=== PATIENT | female | born 1970 | race Caucasian/White ===

== ENCOUNTER 2020-05-28 15:40 | Emergency (ER) | payer OTHER ==
[~2020-05-28] VITALS: Ht 144.8 cm; Wt 41.7 kg
== END 2020-05-28 17:04 | disposition home or self-care (01) ==
LOC: ER 15:40
DX: L03.116 Cellulitis of left lower limb (principal)

== ENCOUNTER 2020-06-03 13:36 | Emergency (ER) | payer OTHER ==
[~2020-06-03] VITALS: Ht 144.8 cm; Wt 44.5 kg
[2020-06-03] MEDS ORDERED: LEVAQUIN500 MG (14:03)
== END 2020-06-03 18:04 | disposition home or self-care (01) ==
LOC: ER 13:36
DX: L20.89 Other atopic dermatitis (principal); L03.115 Cellulitis of right lower limb; Z20.828 Contact with and (suspected) exposure to other viral communicable diseases

== ENCOUNTER 2021-09-09 14:54 | Outpatient (CLI) | payer OTHER ==
[~2021-09-09 14:54] MED LIST: LEVAQUIN500 MG
== END 2021-09-09 15:02 | disposition home or self-care (01) ==
LOC: MAMO-SONO 14:54
DX: R92.1 Mammographic calcification found on diagnostic imaging of breast (principal); Z12.31 Encounter for screening mammogram for malignant neoplasm of breast

== ENCOUNTER 2021-10-23 09:00 | Outpatient (CLI) | payer OTHER | END 2021-10-23 09:30 | disposition home or self-care (01) | LOC: PPH VACUNA 09:00 | PROVIDERS: ATTEND Emergency Medicine Pediatric Emergency Medicine | DX: Z23 Encounter for immunization (principal) ==

== ENCOUNTER → 2022-09-06 | Outpatient (CLI) | payer OTHER | END | disposition home or self-care (01) | LOC: RAD 14:35 | DX: Z03.818 Encounter for observation for suspected exposure to other biological agents ruled out (principal); J06.9 Acute upper respiratory infection, unspecified ==

== ENCOUNTER 2022-09-22 05:57 | Day surgery (SDC) | payer OTHER | END 2022-09-22 11:20 | disposition home or self-care (01) | LOC: CIR.AMB 05:57 | PROVIDERS: ATTEND Obstetrics & Gynecology | DX: D06.9 Carcinoma in situ of cervix, unspecified (principal); Z20.822 Contact with and (suspected) exposure to COVID-19 ==

== ENCOUNTER 2023-05-05 03:49 | Emergency (ER) | payer OTHER ==
[~2023-05-05] VITALS: Ht 144.8 cm; Wt 41.7 kg
[2023-05-05] MEDS ORDERED: TRETINOIN20 G2 TOP (03:56)
[2023-05-05] MEDS ORDERED: CEPHALEXIN500 M1 PO (07:27)
[2023-05-05] MEDS ORDERED: KETO10TA2 PO (07:27)
== END 2023-05-05 07:37 | disposition home or self-care (01) ==
LOC: ER 03:49
DX: L03.818 Cellulitis of other sites (principal); H92.02 Otalgia, left ear

== ENCOUNTER 2023-06-23 08:02 | Outpatient (CLI) | payer OTHER ==
[~2023-06-23 08:02] MED LIST changes: +CEPHALEXIN500 M1 PO; +KETO10TA2 PO; +TRETINOIN20 G2 TOP
== END 2023-06-23 08:17 | disposition home or self-care (01) ==
LOC: MAMO-SONO 08:02
DX: Z12.31 Encounter for screening mammogram for malignant neoplasm of breast (principal)

== ENCOUNTER 2023-07-17 07:19 | Emergency (ER) | payer OTHER ==
[~2023-07-17] VITALS: Ht 144.8 cm; Wt 41.7 kg
== END 2023-07-17 09:27 | disposition home or self-care (01) ==
LOC: ER 07:19
DX: L20.9 Atopic dermatitis, unspecified (principal)

== ENCOUNTER 2024-05-30 23:40 | Emergency (ER) | payer OTHER ==
[~2024-05-30] VITALS: Ht 144.8 cm; Wt 41.7 kg
[2024-05-31] MEDS ORDERED: CEFTRIAXONE SODIUM 1,000 MG VIAL IV STA (01:01)
[2024-05-31] MEDS ORDERED: KETOROLAC TROMETHAMINE 30 MG VIAL IV STA (01:02)
[2024-05-31] MEDS ORDERED: KETOROLAC TROMETHAMINE 30 MG VIAL ONE (01:07)
[2024-05-31] MEDS ORDERED: CEFTRIAXONE SODIUM 1,000 MG VIAL ONE (01:08)
[2024-05-31 01:29] LABS: PH,URINE 5.5 (5.0-8.0); URINE APPEARANCE Clear; URINE BILIRRUBIN Negative (NEGATIVE); URINE BLOOD Negative; URINE COLOR Yellow; URINE GLUCOSE Negative (NEGATIVE); URINE KETONE 15 (NEGATIVE); URINE LEUKOCYTE Negative; URINE NITRATE Negative; URINE PROTEIN Negative (NEGATIVE); URINE UROBILINOGEN 0.2 E.U./dl
[2024-05-31 01:29] LABS: HEMATOCRIT 38.6 % (36.0-45.00); HEMOGLOBIN 13.4 g/dL (12.0-15.00); MEAN CELL VOLUME 92.6 fL (80.00-100.00); MEAN CORPUSCULAR HGB CONC 34.6 g/dl (32.0-36.0); PLATELET COUNT 260 K/uL (150-450); RED BLOOD COUNT 4.17 M/uL (4.00-6.00); RED CELL DISTRIBUTION WIDTH 12.9 % (11.5-14.5)
[2024-05-31 01:32] LABS: URINE EPITHELIAL CELLS 55.3 uL (0.0-38.8); URINE RBC 53.7 uL (0.0-20.8); URINE WBC 10.8 uL (0.0-23.2)
[2024-05-31 01:46] LABS: URINE CAST 0.15 uL (0.0-1.40)
[2024-05-31 02:00] LABS: CALCIUM 9.7 mg/dL (8.5-10.1); CREATININE SERUM 0.65 mg/dL (0.55-1.02); GFR 95.35; POTASSIUM 3.85 mEq/L (3.5-5.1)
[2024-05-31] MEDS ORDERED: CEPHALEXIN500 MG PO (04:08)
[2024-05-31] MEDS ORDERED: KETO10TA2 PO (04:08)
== END 2024-05-31 04:36 | disposition home or self-care (01) ==
LOC: ER 23:42
PROVIDERS: General Practice
DX: R53.81 Other malaise (principal); N63.0 Unspecified lump in unspecified breast; R50.9 Fever, unspecified

== ENCOUNTER 2024-09-23 06:19 | Emergency (ER) | payer OTHER ==
[~2024-09-23] VITALS: Ht 144.8 cm; Wt 41.7 kg
[~2024-09-23 06:19] MED LIST changes: +CEPHALEXIN500 MG PO
[2024-09-23 09:27] LABS: HEMOGLOBIN 12.7 g/dL (12.0-15.00); MEAN CELL VOLUME 90.2 fL (80.00-100.00); MEAN CORPUSCULAR HGB CONC 34.4 g/dl (32.0-36.0); PLATELET COUNT 220 K/uL (150-450); RED CELL DISTRIBUTION WIDTH 12.7 % (11.5-14.5)
[2024-09-23] MEDS ORDERED: GENTAMICIN SULFA5 ML OTIC (09:48)
[2024-09-23 09:59] LABS: ALBUMIN 4.4 gm/dL (3.4-5.0); BILIRUBIN TOTAL 0.52 mg/dL (0.3-1.2); CALCIUM 9.4 mg/dL (8.5-10.1); CREATININE SERUM 0.63 mg/dL (0.55-1.02); GFR 98.85; GLOBULINA 3.7 G/DL (2.4-3.5); POTASSIUM 3.81 mEq/L (3.5-5.1); TOTAL PROTEIN 8.1 gm/dL (6.4-8.2)
== END 2024-09-23 10:12 | disposition home or self-care (01) ==
LOC: ER 06:22
PROVIDERS: General Practice
DX: R53.81 Other malaise (principal); H92.20 Otorrhagia, unspecified ear
CPT/HCPCS: 36415; 70487; Q9965

== ENCOUNTER 2024-12-26 23:50 | Emergency (ER) | payer OTHER ==
[~2024-12-26] VITALS: Ht 144.8 cm; Wt 41.7 kg
[~2024-12-26 23:50] MED LIST changes: +GENTAMICIN SULFA5 ML OTIC
[2024-12-27] MEDS ORDERED: NEOMYCIN/POLYMYXIN B/HYDROCORT 20 DR/ML BOTTLE OT ONE (01:10)
[2024-12-27] MEDS ORDERED: CEPHALEXIN500 MG PO (04:49)
[2024-12-27] MEDS ORDERED: CORTISPORIN EAR10 M1 OPHT (04:49)
== END 2024-12-27 04:44 | disposition home or self-care (01) ==
LOC: ER 23:53
DX: H60.90 Unspecified otitis externa, unspecified ear (principal)

== ENCOUNTER 2025-02-09 23:05 | Emergency (ER) | payer OTHER ==
[~2025-02-09] VITALS: Ht 144.8 cm; Wt 41.7 kg
[~2025-02-09 23:05] MED LIST changes: +CORTISPORIN EAR10 M1 OPHT
== END 2025-02-10 03:49 | disposition home or self-care (01) ==
LOC: ER 23:11
DX: H10.89 Other conjunctivitis (principal)

== ENCOUNTER 2025-02-20 20:54 | Emergency (ER) | payer OTHER ==
[~2025-02-20] VITALS: Ht 144.8 cm; Wt 41.7 kg
[2025-02-20] MEDS ORDERED: SINGULAIR10 MG (21:04)
[2025-02-20] MEDS ORDERED: NASAL MIST126 ML (21:04)
[2025-02-20] MEDS ORDERED: CLARITIN10 M1 (21:04)
[2025-02-20] MEDS ORDERED: NORVASC5 MG (21:04)
[2025-02-20 23:22] LABS: BASO % 0.7 % (0.1-1.2); EOS # 0.12 (0.04-0.54); HEMATOCRIT 35.1 % (34.1-44.9); HEMOGLOBIN 11.8 g/dL (11.2-15.7); LYMPH # 1.26 (1.18-3.74); LYMPH % 20.9 % (19.3-53.1); MEAN CORPUSCULAR HEMOGLOBIN 30.2 pg (25.6-32.2); MONO # 0.54 (0.24-0.82); NEUT # 4.05 (1.56-6.13); NEUT % 67.2 % (34.0-71.1); PLATELET COUNT 295 K/uL (163-369); RED BLOOD COUNT 3.91 M/uL (3.93-5.22); RED CELL DISTRIBUTION WIDTH 12.7 % (11.6-14.4)
[2025-02-20 23:35] LABS: GFR 149.01; POTASSIUM 4.04 mEq/L (3.5-5.1)
[2025-02-20 23:38] LABS: CREATININE SERUM 0.44 mg/dL (0.55-1.02)
== END 2025-02-21 00:02 | disposition home or self-care (01) ==
LOC: ER 22:01
PROVIDERS: General Practice
DX: R53.1 Weakness (principal)

== ENCOUNTER 2025-08-31 01:39 | Emergency (ER) | payer OTHER ==
[~2025-08-31] VITALS: Ht 144.8 cm; Wt 41.7 kg
[~2025-08-31 01:39] MED LIST changes: +CLARITIN10 M1; +NASAL MIST126 ML; +NORVASC5 MG; +SINGULAIR10 MG
== END 2025-08-31 04:01 | disposition home or self-care (01) ==
LOC: ER 01:39
DX: M25.532 Pain in left wrist (principal); M25.521 Pain in right elbow; W19.XXXA Unspecified fall, initial encounter; Z88.1 Allergy status to other antibiotic agents

== ENCOUNTER 2025-09-04 14:56 | Outpatient (CLI) | payer OTHER | END 2025-09-04 15:01 | disposition home or self-care (01) | LOC: MAMO-SONO 14:56 | PROVIDERS: ATTEND Obstetrics & Gynecology | DX: N60.09 Solitary cyst of unspecified breast (principal); Z12.31 Encounter for screening mammogram for malignant neoplasm of breast ==

== ENCOUNTER 2025-09-13 14:19 | Outpatient (CLI) | payer OTHER | END 2025-09-13 14:31 | disposition home or self-care (01) | LOC: SONOGRAMA 14:19 | DX: N92.0 Excessive and frequent menstruation with regular cycle (principal) ==